=== PATIENT | female | born 1985 | race Caucasian/White ===

== ENCOUNTER 2017-05-20 06:35 | Emergency (ER) | payer BC, OTHER ==
[2017-05-20] MEDS ORDERED: SUMAtriptan 6 MG/0.5 ML SDV SUBCUT ONE (07:01)
--- NOTE | 2017-05-20 07:09 | EDM.PDOC ---
ED HPI GENERAL MEDICAL PROBLEM - General Chief Complaint: Headache Stated Complaint: migraine Time Seen by Provider: 05/20/17 06:50 Source of Information: Reports: Patient History Limitations: Reports: No Limitations - History of Present Illness INITIAL COMMENTS - FREE TEXT/NARRATIVE: Patient is a 31-year-old female who was seen with chief complaint of headache above right eye patient described as a migraine her last migraine was many months ago she is currently on no medications Onset: Sudden Duration: Hour(s): (12), Constant Location: Reports: Head (Migraine) Quality: Reports: Ache, Sharp Severity: Moderate (5 out of 10) Improves with: Reports: None Worsens with: Reports: None (Light and loud noises), Other Associated Symptoms: Reports: Nausea/Vomiting Treatments STRIP CATCHER: Reports: Acetaminophen Right Frontal Headache Pain Score (Numeric/FACES): 5 - Related Data Allergies Allergy/AdvReac Type Severity Reaction Status Date / Time amoxicillin [Amoxicillin] Allergy Unknown Difficulty Verified 05/20/17 06:36 Breathing Home Meds: Home Meds Acetaminophen [Acetaminophen Extra Strength] 1,000 mg PO Q6HR 09/04/14 [History] Social & Family History - Tobacco Use Smoking Status *Q: Current Every Day Smoker Years of Tobacco use: 17 Packs/Tins Daily: 0.5 Used Tobacco, but Quit: No Second Hand Smoke Exposure: No - Alcohol Use Days Per Week of Alcohol Use: 5 Number of Drinks Per Day: 3 Total Drinks Per Week: 15 - Recreational Drug Use Recreational Drug Use: No Drug Use in Last 12 Months: No Recreational Drug Type: Reports: Marijuana/Hashish - Living Situation & Occupation Living situation: Reports: Single Occupation: Unemployed ED ROS GENERAL - Review of Systems Review Of Systems: See Below Constitutional: Reports: No Symptoms HEENT: Reports: No Symptoms Respiratory: Reports: No Symptoms Cardiovascular: Reports: No Symptoms Endocrine: Reports: No Symptoms GI/Abdominal: Reports: No Symptoms : Reports: No Symptoms Musculoskeletal: Reports: No Symptoms Skin: Reports: No Symptoms Neurological: Reports: Headache Psychiatric: Reports: No Symptoms Hematologic/Lymphatic: Reports: No Symptoms Immunologic: Reports: No Symptoms ED EXAM, NEURO - Physical Exam Exam: See Below Exam Limited By: No Limitations General Appearance: Alert, WD/WN, No Apparent Distress Eye Exam: Bilateral Eye: EOMI, PERRL Ears: Normal External Exam, Normal Canal, Hearing Grossly Normal, Normal TMs Nose: Normal Inspection, Normal Mucosa, No Blood Throat/Mouth: Normal Inspection, Normal Lips, Normal Teeth, Normal Gums, Normal Oropharynx, Normal Voice, No Airway Compromise Head Exam: Atraumatic, Normocephalic Neck: Normal Inspection, Supple, Non-Tender, Full Range of Motion Respiratory/Chest: No Respiratory Distress, Lungs Clear, Normal Breath Sounds, No Accessory Muscle Use, Chest Non-Tender Cardiovascular: Normal Peripheral Pulses, Regular Rate, Rhythm, No Edema, No Gallop, No JVD, No Murmur, No Rub GI/Abdominal: Normal Bowel Sounds, Soft, Non-Tender, No Organomegaly, No Distention, No Abnormal Bruit, No Mass (Female) Exam: Deferred Rectal (Female) Exam: Deferred Neurological: Alert, Normal Mood/Affect, Normal Dorsiflexion, CN II-XII Intact, Normal Plantar Flexion, Normal Gait, Normal Reflexes, No Motor/Sensory Deficits , Oriented x 3 Back Exam: Normal Inspection, Full Range of Motion, NT Extremities: Normal Inspection, Normal Range of Motion, Non-Tender, No Pedal Edema, Normal Capillary Refill Psychiatric: Normal Affect, Normal Mood Skin Exam: Warm, Dry, Intact, Normal Color, No Rash Course - Vital Signs Last Recorded V/S: Last Vital Signs Temp 98.2 F 05/20/17 06:41 Pulse 65 05/20/17 07:17 Resp 18 05/20/17 07:17 BP 147/86 H 05/20/17 07:17 Pulse Ox 100 05/20/17 07:17 - Orders/Labs/Meds Meds: Medications Discontinued Medications Generic Name Dose Route Start Last Admin Trade Name Paloma PRN Reason Stop Dose Admin Sumatriptan Succinate 6 mg 05/20/17 07:01 05/20/17 07:09 Imitrex SUBCUT 05/20/17 07:02 6 mg ONETIME ONE Administration Departure - Departure Time of Disposition: 07:30 Disposition: Home, Self-Care 01 Condition: Good Clinical Impression: Migraine - Discharge Information Instructions: Sumatriptan injection, Migraine Headache, [id number] Referrals: Susan Laughlin NP [Primary Care Provider] - Forms: ED Department Discharge Care Plan Goals: Imitrex subcutaneous given headache aborted we'll send home she should see primary for oral medication
[2017-05-20 07:17] VITALS: BP 147/86
== END 2017-05-20 07:40 | disposition home or self-care (01) ==
LOC: LL.ED 06:35
DX: G43.909 Migraine, unspecified, not intractable, without status migrainosus (principal); Z88.1 Allergy status to other antibiotic agents; F17.210 Nicotine dependence, cigarettes, uncomplicated
CPT/HCPCS: 96372; 99283; J3030

== ENCOUNTER 2024-04-11 20:05 | Emergency (ER) | payer BC, MEDICAID, OTHER ==
[2024-04-11] MEDS ORDERED: Sodium Chloride 0.9% 10 ML Syringe FLUSH PRN (20:20)
[2024-04-11 20:28] LABS: BASOPHILS ABSOLUTE AUTO 0.03 K/uL (0.00-0.20); BASOPHILS PERCENT AUTO 0.6 % (0.0-2.0); EOSINOPHILS ABSOLUTE AUTO 0.09 K/uL (0.00-0.50); EOSINOPHILS PERCENT AUTO 1.7 % (0.0-5.0); HEMATOCRIT 43.1 % (34.0-46.0); HEMOGLOBIN 15.3 g/dL (11.7-15.5); LYMPHOCYTES ABSOLUTE AUTO 2.22 K/uL (0.50-3.50); LYMPHOCYTES PERCENT AUTO 41.3 % (10.0-50.0); MEAN CORPUSCULAR HEMOGLOBIN 34.9 pg (28.2-33.3); MEAN CORPUSCULAR HGB CONC 35.5 g/dL (31.7-36.0); MEAN CORPUSCULAR VOLUME 98.2 fL (84.0-98.0); MONOCYTES ABSOLUTE AUTO 0.32 K/uL (0.00-1.00); NEUTROPHILS ABSOLUTE AUTO 2.71 K/uL (1.40-7.00); NEUTROPHILS PERCENT AUTO 50.4 % (45.0-80.0); PLATELET COUNT,PLT 156 K/uL (150-350); RED BLOOD CELL COUNT 4.39 M/uL (3.77-5.09); RED CELL DISTRIBUTION WIDTH 12.5 % (11.2-14.1); WHITE BLOOD CELL COUNT,WBC 5.4 K/uL (4.0-10.2)
[2024-04-11] MEDS: Lactated Ringers 1,000 ML IV ONE (20:49)
[2024-04-11 20:52] LABS: ALANINE AMINOTRANSFERASE,ALT 51 U/L (12-78); ALBUMIN 3.8 g/dL (3.4-5.0); ALKALINE PHOSPHATASE 84 IU/L (46-116); ANION GAP 12.8 meq/L (7-15); ASPARTATE AMNIOTRANSFERASE,AST 57 U/L (15-37); BILIRUBIN TOTAL 0.7 mg/dL (0.2-1.0); BLOOD UREA NITROGEN,BUN 7 mg/dL (7-18); CALCIUM 8.9 mg/dL (8.5-10.1); CARBON DIOXIDE,CO2 25.2 mmol/L (21.0-32.0); CHLORIDE,CL 103 mmol/L (98-107); CREATININE 0.69 mg/dL (0.51-1.17); ETHANOL BLOOD MEDICAL 0.278 g/dL (0.000-0.080); GLUCOSE RANDOM 94 mg/dL (70-99); LIPASE 36 U/L (16-77); POTASSIUM,K 3.8 mmol/L (3.5-5.1); PROTEIN TOTAL,TP 7.2 g/dL (6.4-8.2); SODIUM,NA 141 mmol/L (136-145)
[2024-04-11 20:54] LABS: ESTIMATED GFR 114 mL/min (>=60)
[2024-04-11 21:00] LABS: AMPHETAMINES SCREEN, URINE NEGATIVE (NEGATIVE); BARBITURATE SCREEN,URINE NEGATIVE (NEGATIVE); BENZODIAZEPINES SCREEN,URINE NEGATIVE (NEGATIVE); COCAINE METABOLITES,URINE NEGATIVE (NEGATIVE); EDDP,URINE SCREEN NEGATIVE (NEGATIVE); METHAMPHETAMINES SCREEN, URINE NEGATIVE (NEGATIVE); PROTHROMBIN TIME 9.7 SEC (9.0-11.1); PTT,PARTIAL THROMBOPLSTIN TIME 22.6 SEC (23.6-29.8); TCA SCREEN,URINE NEGATIVE (NEGATIVE); THC SCREEN,URINE 50 NG/ML NEGATIVE (NEGATIVE)
[2024-04-11 21:01] LABS: BUPRENORPHINE SCREEN,URINE NEGATIVE (NEGATIVE); OXYCODONE SCREEN,URINE NEGATIVE (NEGATIVE)
[2024-04-11] MEDS: Ondansetron 4 MG/2 ML SDV IVPUSH ONE (21:13)
[2024-04-11] MEDS ORDERED: Naloxone 0.4 MG/ML SDV IVPUSH PRN (21:16)
[2024-04-11] MEDS: fentaNYL 50 MCG/ML SDV IVPUSH ONE ×2 (21:21→21:22)
[2024-04-11] MEDS: Diphtheria,Pertussis(Acell),Tetanus Vaccine 0.5 ML Syringe IM ONE (22:45)
== END 2024-04-11 23:05 | disposition home or self-care (01) ==
LOC: LL.ED 20:05
DX: S01.511A Laceration without foreign body of lip, initial encounter (principal); S01.512A Laceration without foreign body of oral cavity, initial encounter; M79.645 Pain in left finger(s); F10.120 Alcohol abuse with intoxication, uncomplicated; Z88.0 Allergy status to penicillin; Z23 Encounter for immunization; Z79.899 Other long term (current) drug therapy; V43.52XA Car driver injured in collision with other type car in traffic accident, initial encounter; Y93.89 Activity, other specified; Y90.9 Presence of alcohol in blood, level not specified
CPT/HCPCS: 36415; 70450; 71045; 72040; 72170; 73090-RT; 73120-LT; 80053; 80305-QW; 80307; 83690; 85025; 85610; 85730; 90471; 90715; 96361; 96374; 96375; 99283; 99284-25; J2405; J3010; J7120